=== PATIENT | female | born 1970 | race Caucasian/White ===

== ENCOUNTER 2017-01-22 11:44 | Emergency (ER) | payer BC ==
--- NOTE | 2017-01-22 13:52 | CT ---
CT BRAIN: HISTORY: A 46-year-old with a history of headaches. FINDINGS: Noncontrast-enhanced CT images of the brain are obtained from the base of the skull through the vert ex. Brain and bone windows are obtained. CT images demonstrate the brain to be unremarkable. No evidence of intracranial masses, hemorrhages , strokes, or contusions seen. IMPRESSION: Normal CT brain. POS: [facility]
== END 2017-01-22 12:24 | disposition home or self-care (01) ==
LOC: SCSER 11:44
DX: G43.909 Migraine, unspecified, not intractable, without status migrainosus (principal); E03.9 Hypothyroidism, unspecified; J45.909 Unspecified asthma, uncomplicated; F32.9 Major depressive disorder, single episode, unspecified
CPT/HCPCS: 70450

== ENCOUNTER 2017-04-10 15:39 | Outpatient (CLI) | payer BC | END 2017-04-10 15:40 | disposition home or self-care (01) | LOC: BICRAD 15:39 | PROVIDERS: ATTEND Internal Medicine Rheumatology | DX: M25.561 Pain in right knee (principal); M25.562 Pain in left knee; M17.0 Bilateral primary osteoarthritis of knee | CPT/HCPCS: 73565 ==

== ENCOUNTER 2018-12-28 06:15 | Day surgery (SDC) | payer BC ==
[2018-12-27 16:28] VITALS: BMI 39.9
[2018-12-28 06:57] LABS: Hemoglobin 14.1 g/dL (12.0-16.0); Mean Corpuscular HGB CONC 33.6 g/dL (32.0-36.0); Mean Corpuscular Hemoglobin 27.6 pg (27.0-31.0); Mean Corpuscular Volume 82.4 fL (78.0-98.0); Mean Platelet Volume 6.6 fL (7.4-10.4); Platelet Count 474 thou/uL (130-400); RBC Distribution Width 13.6 % (11.5-14.5); White Blood Cell (WBC) Count 17.2 thou/uL (4.8-10.8)
[2018-12-28] MEDS ORDERED: Fentanyl 100 MCG/2 ML VIAL ONE ×2 (06:58→10:00)
[2018-12-28] MEDS ORDERED: Bacitracin Zinc Ointment 30 gm TUBE ONE (07:13)
[2018-12-28] MEDS ORDERED: Bupivacaine/Epinephrine 0.25% 30 ML VIAL ONE ×2 (07:13→08:55)
[2018-12-28] MEDS ORDERED: Lidocaine 2% PF 5 ML VIAL ONE (07:13)
[2018-12-28 07:16] LABS: Anion Gap 16 mmol/L (10-20); BUN (Urea Nitrogen) 12 mg/dL (7.0-18.7); Calc. Creatinine Clearance 172 mL/min (70-130); Calcium 9.6 mg/dL (7.8-10.44); Carbon Dioxide 22 mmol/L (22-29); Chloride 104 mmol/L (98-107); Estimated GFR-MDRD 79; Glucose 88 mg/dL (70-105); Potassium 3.6 mmol/L (3.5-5.1); Sodium 138 mmol/L (136-145)
[2018-12-28] MEDS ORDERED: PROPOFOL 20 ML ONE (08:38)
[2018-12-28] MEDS ORDERED: ePHEDrine 50 MG/ML VIAL ONE (09:23)
[2018-12-28] MEDS ORDERED: Succinylcholine Chloride 20 MG/ML 10 ml SYRINGE FS ONE (09:23)
[2018-12-28] MEDS ORDERED: Glycopyrrolate 0.2 MG/ML 5 ML SYRINGE ONE (09:23)
[2018-12-28] MEDS ORDERED: Rocuronium Bromide 10 MG/ML (10ML VIAL) ONE (09:23)
[2018-12-28] MEDS ORDERED: PROPOFOL 200 MG/20 ML VIAL ONE (09:23)
[2018-12-28] MEDS ORDERED: Ondansetron PF 4 MG/2 ML Vial ONE (09:23)
[2018-12-28] MEDS ORDERED: Dexamethasone 20 MG/5 ML VIAL ONE (09:23)
[2018-12-28] MEDS ORDERED: Ketorolac Tromethamine 30 MG/ML VIAL ONE (09:23)
[2018-12-28] MEDS ORDERED: PHENYLEPHRINE-NS 100 MCG/ML 10 ML SYRINGE ONE (09:23)
[2018-12-28] MEDS ORDERED: Lidocaine 1% PF 5 ML VIAL ONE (09:23)
[2018-12-28] MEDS ORDERED: Promethazine HCl 25 MG/ML VIAL ONE (09:41)
--- NOTE | 2018-12-28 18:32 | PDOC.OP ---
Operative Note - Operative Note Operative Note: PROCEDURE: Excision of lipoma from left upper back SURGEON: Marizol Rodriguez M.D. DATE: 12/28/2018 PREOPERATIVE DIAGNOSIS: Lipoma of left upper back POSTOPERATIVE DIAGNOSIS: Lipoma of left upper back HISTORY: Patient with a subcutaneous mass consistent with lipoma which she noticed in September. It is uncomfortable and she wishes to have it removed for diagnostic and symptomatic purposes. PROCEDURE IN DETAIL: After informed consent was obtained and appropriate preoperative antibiotics were administered the patient was taken to the operating on she was placed in supine position and general endotracheal anesthesia was administered. She was placed in the right lateral decubitus position with appropriate support and padding of her extremities and prepped and draped in standard sterile fashion. Local anesthesia was infused circumferentially for a field block and a vertical incision made overlying the mass. Dissection was carried down to the normal subcutaneous fat to a somewhat fibrotic encapsulated large lipoma which was dissected free circumferentially. It was partially intramuscular but not very thick. It was marked for orientation with a long lateral, short superior and looped superficial suture and sent to pathology. Additional local anesthesia was infused for postoperative pain control and hemostasis obtained using Bovie electrocautery. The was copiously irrigated and hemostasis verified. A JIN drain was brought out laterally and secured to the skin. The subcutaneous tissues were closed in 2 layers and the skin was closed with a running subcuticular Monocryl suture. Dermabond dressings were placed and once this was dry a pressure dressing was placed. The patient was moved to the supine position and extubated and taken to recovery in good condition. Estimated blood loss minimal. There were no complications. Specimen is lipoma.
--- NOTE | 2019-01-04 05:44 | PQF ---
[facility] POST DISCHARGE CLINICAL DOCUMENTATION IMPROVEMENT CLARIFICATION FORM l Todays Date: 01/03/19 l Patients Name LONNY SYKES l l Admit Date 12/28/18 l Disch Date 12/28/18 Dietitian Teacher Name Kerri Garzon Email: [email or web address] Cell: [phone] To be completed by Dietitian Teacher: Present Clinical Indicators - Signs / Symptoms Results and Location in Medical Record [ ] Documentation of: [ ] [ ] Documentation of: [ ] [ ] Documentation of: [ ] [ ] Documentation of: [ ] [ ] Risks [ ] [ ] [ ] Treatment [ ] need to verify size and margin of excied lesion Excision of lesion of upper back. [ ] [ ]I have never heard of thispatient ---wrong doctor! To be completed by Physician: SUKI THORPE The documentation in this patients record requires clarification to ensure coding compliance and accuracy. Check the appropriate box and include in your discharge summary. [ ] [ ] [ ] [ ] Please check this box if this does not apply to this patient [ ] Unable to determine [ ] Other diagnosis: Review the following information and exercise your independent professional judgment in responding to the clarification. Based upon the clinical findings, risk factors, and treatment, please clarify if you are treating one of the above probable or suspected diagnoses. Physician Signature: Date Time MTDD
--- NOTE | 2019-01-07 06:17 | PQF ---
[facility] POST DISCHARGE CLINICAL DOCUMENTATION IMPROVEMENT CLARIFICATION FORM l Todays Date: 01/03/19 l Patients Name LONNY SYKES l l Admit Date 12/28/18 l Disch Date 12/28/18 Beveler Name Kerri Garzon Email: [email or web address] Cell: [phone] To be completed by Beveler: Present Clinical Indicators - Signs / Symptoms Results and Location in Medical Record [ ] Documentation of: [ ] [ ] Documentation of: [ ] [ ] Documentation of: [ ] [ ] Documentation of: [ ] [ ] Risks [ ] [ ] [ ] Treatment [ ] need to verify size and margin of excied lesion Excision of lesion of upper back. [ ] [ ] To be completed by Physician: Marizol Brown The documentation in this patients record requires clarification to ensure coding compliance and accuracy. Check the appropriate box and include in your discharge summary. [ ] [ ] [ ] [ ] Please check this box if this does not apply to this patient [ ] Unable to determine [ ] Other diagnosis: Review the following information and exercise your independent professional judgment in responding to the clarification. Based upon the clinical findings, risk factors, and treatment, please clarify if you are treating one of the above probable or suspected diagnoses. Physician Signature: Date Time MTDD
== END 2018-12-28 13:00 | disposition home or self-care (01) ==
LOC: SDC 06:15
PROVIDERS: ATTEND Surgery
DX: D17.1 Benign lipomatous neoplasm of skin and subcutaneous tissue of trunk (principal); J45.909 Unspecified asthma, uncomplicated; K21.9 Gastro-esophageal reflux disease without esophagitis; E06.3 Autoimmune thyroiditis; E03.9 Hypothyroidism, unspecified; I10 Essential (primary) hypertension; F32.9 Major depressive disorder, single episode, unspecified; F41.9 Anxiety disorder, unspecified; G43.909 Migraine, unspecified, not intractable, without status migrainosus; M06.9 Rheumatoid arthritis, unspecified; E28.2 Polycystic ovarian syndrome; Z79.52 Long term (current) use of systemic steroids; Z79.84 Long term (current) use of oral hypoglycemic drugs; Z79.899 Other long term (current) drug therapy; Z88.8 Allergy status to other drugs, medicaments and biological substances
CPT/HCPCS: 80048; 85027; 88304; J0690; J1100; J1885; J2001; J2405; J2550; J2704; J3010; J3490

== ENCOUNTER 2019-03-05 05:26 | Outpatient (CLI) | payer BC ==
[2019-03-05 13:37] LABS: #Basophils 0.1 thou/uL (0.0-0.2); #Eosinphils 0.2 thou/uL (0.0-0.7); #Monocytes 0.6 thou/uL (0.11-0.59); #Neutrophils 5.7 thou/uL (1.40-6.50); %Basophils 0.6 % (0.0-1.0); %Eosinophils 1.8 % (0.0-10.0); %Lymphocytes 31.4 % (21.0-51.0); %Monocytes 6.4 % (0.0-10.0); %Neutrophils 59.8 % (42.0-75.0); Hemoglobin 12.9 g/dL (12.0-16.0); Mean Corpuscular HGB CONC 33.2 g/dL (32.0-36.0); Mean Corpuscular Hemoglobin 26.7 pg (27.0-31.0); Mean Corpuscular Volume 80.4 fL (78.0-98.0); Mean Platelet Volume 7.2 fL (7.4-10.4); Platelet Count 383 thou/uL (130-400); RBC Distribution Width 14.2 % (11.5-14.5); Red Blood Cell (RBC) Count 4.83 mill/uL (4.20-5.40); White Blood Cell (WBC) Count 9.5 thou/uL (4.8-10.8)
[2019-03-05 14:11] LABS: Anion Gap 15 mmol/L (10-20); BUN (Urea Nitrogen) 7 mg/dL (7.0-18.7); Calc. Creatinine Clearance 0 mL/min (70-130); Calcium 9.1 mg/dL (7.8-10.44); Carbon Dioxide 26 mmol/L (22-29); Chloride 101 mmol/L (98-107); Estimated GFR-MDRD 82; Glucose 73 mg/dL (70-105); Potassium 3.5 mmol/L (3.5-5.1); Sodium 138 mmol/L (136-145)
--- NOTE | 2019-03-06 07:18 | EKG ---
Test Reason : Blood Pressure : / mmHG Vent. Rate : 082 BPM Atrial Rate : 082 BPM P-R Int : 158 ms QRS Dur : 080 ms QT Int : 374 ms P-R-T Axes : 046 010 042 degrees QTc Int : 436 ms Normal sinus rhythm Poor anterior R wave progression Confirmed by DR. Melanie SCHAEFER ([id number]) on 03/06/2019 7:18:01 AM Referred By: CASTRO Confirmed By:DR. Melanie SCHAEFER
== END 2019-03-05 05:27 | disposition home or self-care (01) ==
LOC: LABBT 05:26
PROVIDERS: ATTEND Surgery
DX: Z01.812 Encounter for preprocedural laboratory examination (principal); T88.8XXA Other specified complications of surgical and medical care, not elsewhere classified, initial encounter
CPT/HCPCS: 80048; 85025; 93005; 93010

== ENCOUNTER 2019-03-07 06:28 | Day surgery (SDC) | payer BC ==
[2019-03-05 11:44] VITALS: BMI 42.5
[2019-03-07] MEDS ORDERED: Fentanyl 100 MCG/2 ML VIAL ONE ×3 (08:24→11:05)
[2019-03-07] MEDS ORDERED: Bupivacaine HCl 0.25%/Epi 0.0005/PF 10 ML VIAL FS ONE (08:25)
[2019-03-07] MEDS ORDERED: Ketorolac Tromethamine 30 MG/ML VIAL ONE (10:52)
[2019-03-07] MEDS ORDERED: Lidocaine 1% PF 5 ML VIAL ONE (10:52)
[2019-03-07] MEDS ORDERED: ePHEDrine/0.9% NaCl/PF SYRINGE 50 mg/10 ml ONE (10:52)
[2019-03-07] MEDS ORDERED: PHENYLEPHRINE-NS 100 MCG/ML 10 ML SYRINGE ONE (10:52)
[2019-03-07] MEDS ORDERED: Dexamethasone 20 MG/5 ML VIAL ONE (10:52)
[2019-03-07] MEDS ORDERED: Ondansetron PF 4 MG/2 ML Vial ONE (10:52)
[2019-03-07] MEDS ORDERED: PROPOFOL 200 MG/20 ML VIAL ONE (10:52)
[2019-03-07] MEDS ORDERED: Glycopyrrolate 0.2 MG/ML 5 ML SYRINGE ONE (10:52)
[2019-03-07] MEDS ORDERED: Morphine 4 MG/ML VIAL ONE (11:00)
[2019-03-07] MEDS ORDERED: HYDROcodone/Acetaminophen 5/325 mg Tablet ONE (12:16)
--- NOTE | 2019-03-13 15:02 | PDOC.OP ---
Operative Note - Operative Note Operative Note: PROCEDURE: Drainage debridement and imbrication of chronic seroma cavity of the left back SURGEON: Marizol Rodriguez M.D. DATE: 03/07/2019 PREOPERATIVE DIAGNOSIS: Postoperative seroma POSTOPERATIVE DIAGNOSIS: Postoperative seroma HISTORY: Patient who underwent resection of a large lipoma from her left upper back. She developed a postoperative seroma which has been persistent and symptomatic. Operative drainage debridement and imbrication was recommended. PROCEDURE IN DETAIL: After informed consent was obtained and appropriate preoperative antibodies were administered patient was taken to the operating on she was placed in supine position and general anesthesia was administered. She was then placed in the right lateral decubitus position with appropriate support and padding of her extremities. She was prepped and draped in standard sterile fashion and local anesthesia was infused circumferentially for a field block. A previous skin incision was reopened and dissection carried down to the chronic seroma cavity which was opened and drained. There was a thin serosalized lining which was mechanically debrided and cauterized to create a rough adherent surface. A JIN drain was placed into the seroma cavity and brought out laterally and inferiorly and secured to the skin. The seroma cavity was then imbricated around the drain with a running V-Lock suture with excellent approximation of the anterior and posterior diaz of the seroma cavity. The subcutaneous tissues were then reapproximated with 2 layers of 3-0 Monocryl suture. The skin was closed with a running subcuticular 4-0 suture. A drain sponge and Tegaderm were placed at the JIN exit site. Dermabond dressings were placed to the skin incision and once this was dry a pressure dressing was placed and secured with an Edgardo wrap. The patient was extubated and taken to recovery in good condition. Estimated blood loss was minimal. There were no complications. There were no specimens.
== END 2019-03-07 12:53 | disposition home or self-care (01) ==
LOC: SDC 06:28
PROVIDERS: ATTEND Surgery
PROC: 0W9K00Z Drainage of Upper Back with Drainage Device, Open Approach (ICD-10-PCS; principal; 2019-03-07)
DX: M96.842 Postprocedural seroma of a musculoskeletal structure following a musculoskeletal system procedure (principal); J45.909 Unspecified asthma, uncomplicated; K21.9 Gastro-esophageal reflux disease without esophagitis; E03.9 Hypothyroidism, unspecified; F32.9 Major depressive disorder, single episode, unspecified; F41.9 Anxiety disorder, unspecified; I10 Essential (primary) hypertension; G43.909 Migraine, unspecified, not intractable, without status migrainosus; M10.9 Gout, unspecified; E28.2 Polycystic ovarian syndrome; Z79.84 Long term (current) use of oral hypoglycemic drugs; Z79.899 Other long term (current) drug therapy; Z88.1 Allergy status to other antibiotic agents; Z88.8 Allergy status to other drugs, medicaments and biological substances; Z98.1 Arthrodesis status
CPT/HCPCS: J0690; J1100; J1885; J2001; J2270; J2405; J2704; J3010

== ENCOUNTER 2019-03-15 19:06 | Emergency (ER) | payer BC ==
[~2019-03-15 19:06] MED LIST: Iopamidol-370 76% 500 ML 1 ML ONE
[2019-03-15 19:36] LABS: #Basophils 0.1 thou/uL (0.0-0.2); #Eosinphils 0.1 thou/uL (0.0-0.7); #Monocytes 1.3 thou/uL (0.11-0.59); #Neutrophils 13.2 thou/uL (1.40-6.50); %Basophils 0.3 % (0.0-1.0); %Eosinophils 0.6 % (0.0-10.0); %Monocytes 7.1 % (0.0-10.0); %Neutrophils 75.1 % (42.0-75.0); Mean Corpuscular HGB CONC 33.2 g/dL (32.0-36.0); Mean Corpuscular Hemoglobin 26.4 pg (27.0-31.0); Mean Corpuscular Volume 79.5 fL (78.0-98.0); Mean Platelet Volume 6.7 fL (7.4-10.4); Platelet Count 447 thou/uL (130-400); RBC Distribution Width 13.9 % (11.5-14.5); White Blood Cell (WBC) Count 17.6 thou/uL (4.8-10.8)
--- NOTE | 2019-03-15 19:48 | RAD ---
PORTABLE CHEST ONE VIEW: 03/15/19 at 7:19 p.m. HISTORY: Postop one week. Patient has fever today. FINDINGS: Comparison made with exam of 01/06/18. There is continued elevation of the right hemidiaphragm. The heart size is normal. The aorta is tortu ous. No focal areas of consolidation pneumothoraces, or pleural effusions are seen. Bilateral small c ervical ribs are again seen. IMPRESSION: No acute process. POS: [facility]
[2019-03-15 19:57] LABS: ALT (SGPT) 8 U/L (8-55); AST (SGOT) 10 U/L (5-34); Albumin 4.3 g/dL (3.5-5.0); Alkaline Phosphatase 102 U/L (40-110); Anion Gap 12 mmol/L (10-20); BUN (Urea Nitrogen) 8 mg/dL (7.0-18.7); Bilirubin, Total 0.4 mg/dL (0.2-1.2); Calc. Creatinine Clearance 0 mL/min (70-130); Calcium 9.3 mg/dL (7.8-10.44); Carbon Dioxide 28 mmol/L (22-29); Chloride 100 mmol/L (98-107); Estimated GFR-MDRD 70; Glucose 119 mg/dL (70-105); Protein, Total 7.3 g/dL (6.0-8.3); Sodium 136 mmol/L (136-145)
[2019-03-15] MEDS ORDERED: Piperacillin/Tazobactam 4.5 GM VIAL ONE (20:15)
[2019-03-15] MEDS ORDERED: Sodium Chloride 0.9% 100 ML ONE (20:16)
[2019-03-15 21:03] LABS: Bilirubin Negative (Negative); Blood, Urine Negative (Negative); Clarity Clear (Clear); Glucose, Urine (Dipstick) Normal (Negative); Leukocyte Negative Leu/uL (Negative); Nitrite Negative (Negative); Protein, Urine (Dipstick) 20 mg/dL (Neg-Trace); Urobilinogen Normal mg/dL (Less than 2)
--- NOTE | 2019-03-15 21:47 | CT ---
CT CHEST WITH IV CONTRAST: 03/15/19 HISTORY: 48-year-old female with fever. Patient had surgery eight days ago of the left scapula. Drainage tube in place. FINDINGS: No evidence of mediastinal, hilar or axillary mass or lymphadenopathy seen. There are vascular calcif ications without evidence of aneurysmal dilatation of the thoracic aorta. No pleural or pericardial e ffusions are seen. No pneumothoraces, focal areas of consolidation or lung masses are seen. There are degenerative changes in the spine. There is a drainage tube in the subcutaneous fat of the upper-mid back on the left. There is induration of the subcutaneous fat without definite evidence of a loculated fluid collection. Upper abdominal tomogram demonstrates changes of cholecystectomy and fatty infiltration of the liver. IMPRESSION: No definite evidence of abscess formation in the upper-mid back. POS: [facility]
[2019-03-15 22:20] LABS: Lactic Acid 2.4 mmol/L (0.5-2.2)
[2019-03-15] MEDS ORDERED: Ondansetron PF 4 MG/2 ML Vial ONE (22:48)
[2019-03-15] MEDS ORDERED: cefTRIAXone\\ROCEPHIN 1 GM VIAL ONE (22:48)
[2019-03-15] MEDS ORDERED: Morphine 4 MG/ML VIAL ONE (22:48)
== END 2019-03-15 23:41 | disposition home or self-care (01) ==
LOC: ERS 19:06
DX: R50.9 Fever, unspecified (principal); G43.909 Migraine, unspecified, not intractable, without status migrainosus; Z79.899 Other long term (current) drug therapy
CPT/HCPCS: 36415; 71045; 71260; 80053; 81003; 83605; 85025; 87040; 87804; 93005; 96361; 96365; 96367; 96375; J0696; J2270; J2405; J2543; J3490; Q9967

== ENCOUNTER 2019-06-25 20:30 | Outpatient (CLI) | payer BC | END 2019-06-25 20:31 | disposition home or self-care (01) | LOC: SLEEPLAB 20:30 | PROVIDERS: ATTEND Physician Assistant | DX: G47.33 Obstructive sleep apnea (adult) (pediatric) (principal); R53.83 Other fatigue; K21.9 Gastro-esophageal reflux disease without esophagitis; I10 Essential (primary) hypertension; R06.83 Snoring; F32.9 Major depressive disorder, single episode, unspecified; G47.00 Insomnia, unspecified; G47.10 Hypersomnia, unspecified; E66.9 Obesity, unspecified; Z68.41 Body mass index [BMI] 40.0-44.9, adult | CPT/HCPCS: 95811 ==